=== PATIENT | male | born 1980 | race Caucasian/White ===

== ENCOUNTER 2024-01-24 09:39 | Outpatient (AMB) | payer BC, SELFPAY ==
[2024-01-24 09:44] VITALS: BP 130/78; PULSE 89; TEMP 36.6; O2SAT 98; BMI 27.6
--- NOTE | 2024-01-24 09:44 | MHC.OFFWIV ---
Intake Vital Signs 01/24/24 09:44 Height 6 ft 4 in Weight 227 lb BMI 27.6 BP 130/78 Blood Pressure Location Lt brachial Position Sitting Pulse 89 Pulse Source Pulse Oximeter Temp 97.9 F Temp Source Temporal Artery Scan Pulse Oximetry (%) 98 Oxygen Delivery Method Room Air Intake Visit Reasons: [employer] posion Dahlia Intake Note: pt is here today for posion dahlia started yesterday Patient Tobacco Use Status: Never used Tobacco Allergies No Known Allergies Allergy (Verified 01/24/24 09:50) Do you need a note to return to daycare/school/sports/work: Yes HPI HPI Comments History of Present Illness Details 43-year-old male presents today complaining of poison dahlia on his arms but also on the right side of his face near his eye. The onset of this rash was yesterday denies any change in vision PFSH Social History Patient Tobacco Use Status: Never used Tobacco Review of Systems Const All systems reviewed & are unremarkable except as noted in HPI and below Physical Exam Vital Signs: Last Vital Signs Temp 97.9 F 01/24/24 09:44 Pulse 89 01/24/24 09:44 BP 130/78 01/24/24 09:44 Pulse Ox 98 01/24/24 09:44 Oxygen Delivery Method Room Air 01/24/24 09:44 BMI result Body Mass Index 27.6 Const General: healthy appearing and no acute distress HEENT Head: Yes normal to inspection, Yes normocephalic and Yes atraumatic Ears: hearing grossly normal bilaterally General nose exam: Normal external nose present Face and sinus: Yes other (Macular rash present surrounding the right side of his face and eye) Skin Rashes: rashes noted (Bilateral arms and right side of face) Assessment & Plan Assessment & Plan (1) Contact dermatitis: Code(s): L25.9 - Unspecified contact dermatitis, unspecified cause Plan: The patient is put on a Medrol Dosepak. I also advised him to avoid the sun for the next few days as not to irritate the poison dahlia on his face Plan See plan Medications: New prednisone prednisone 5 mg: take 8 tablets (40 mg) on Day 1; 7 tablets (35 mg) on Day 2; then decrease by 1 tablet every day until finished PO 48 ea 0RF Coding Level of Care Code Est Pt Level 3 (34754) Diagnoses Contact dermatitis L25.9
== END 2024-01-24 10:09 | disposition home or self-care (01) ==
PROVIDERS: Visit Provider Physician Assistant Medical
DX: L25.9 Unspecified contact dermatitis, unspecified cause (principal)
CPT/HCPCS: 99213